=== PATIENT | female | born 1980 | race Caucasian/White ===

== ENCOUNTER 2019-04-16 11:43 | Emergency (ER) | payer MEDICARE, OTHER ==
[~2019-04-16] VITALS: Ht 167.6 cm; Wt 86.2 kg
[2019-04-16] MEDS ORDERED: LEVSOD75 PO (11:53)
[2019-04-16 15:49] LABS: Bilirubin, Urine Neg (Neg); Blood, Urine 2+ (Neg); Glucose Qualitative, Urine Neg (Neg); Ketones, Urine 3+ (Neg); Leukocyte Esterase, Urine 2+ (Neg); Nitrite, Urine Pos (Neg); Protein, Urine 2+ (Neg); Source, Urine Clean Catch; Urobilinogen, Urine NORM (Normal)
[2019-04-16 15:57] LABS: Appearance, Urine Hazy (Clear); Color, Urine Yellow (P-Yellow)
[2019-04-16 15:58] LABS: Bacteria Many /hpf; Squamous Epithelial Cells Few /hpf (Few); White Blood Cells, Urine 25-50 /hpf (0-5)
[2019-04-16] MEDS ORDERED: Keflex500 MG PO (16:17)
[2019-04-16] MEDS ORDERED: IBUP800 PO (17:21)
== END 2019-04-16 17:30 | disposition home or self-care (01) ==
LOC: ER 11:43
PROVIDERS: Physician Assistant
DX: S20.211A Contusion of right front wall of thorax, initial encounter (principal); N39.0 Urinary tract infection, site not specified; Z88.1 Allergy status to other antibiotic agents; Z88.2 Allergy status to sulfonamides; Z88.5 Allergy status to narcotic agent; Z79.899 Other long term (current) drug therapy; Z88.8 Allergy status to other drugs, medicaments and biological substances; X50.0XXA Overexertion from strenuous movement or load, initial encounter
CPT/HCPCS: 71046; 81001; 87077; 87086; 87186; 96372; 99283-25; A9270-GY; J1885